=== PATIENT | male | born 1945 | race Caucasian/White ===

== ENCOUNTER 2016-08-26 11:22 | Emergency (ER) | payer OTHER ==
[~2016-08-26] VITALS: Ht 177.8 cm; Wt 86.4 kg
[2016-08-26 11:35] VITALS: BP 180/94; PULSE 80; RESP 15; O2SAT 97
--- NOTE | 2016-08-26 11:58 | ED.REPORT ---
HPI-General Illness Date of Service Aug 26, 2016 ED Provider: Ector Bueno MD The patient is a 71 year old male with history of hypertension who presents to the emergency department concerned he may be having a medication reaction. He was recently started on Losartan 25 mg about 1 week ago. He has since noticed intermittent dizziness, right lower chest pain, lightheadedness and near syncopal episodes with standing, difficulty focusing eyes, and spacey mentation. He has not fully lost consciousness. He has not fallen or hit his head. He has not experienced similar symptoms in the past. He stopped the Losartan yesterday. He denies chest pain, shortness of breath, fever, chills, nausea, vomiting or diarrhea. Nursing Notes Stated Complaint: POSSIBLE DRUG REACTION/SENT FROM [place] Chief Complaint: General Complaint Nursing Notes Reviewed: Yes Allergies: Coded Allergies: phenol (Verified Allergy, Severe, Anaphylaxis, 08/26/16) General Time Seen by MD: 11:56 Chief Complaint Other (possible medication reaction) Hx Obtained From: Patient Arrived By: Walk-in Sudden in Onset?: Yes Onset Occurred: 1 week ago Symptom Duration: Since onset Location: : Chest Quality: Painful Severity: Current: Mild Severity: Maximum: Moderate Recent Healthcare: No recent hospitalization, Recent doctor visit Similar Sx Previous: No Past Medical History Past Medical History Hypertension Carpal tunnel Arthritis Family History Noncontributory Smoking History Unknown if Ever Smoker Social History Other Social History: Local resident Ambulatory Status Independent Review of Systems +difficulty focusing eyes, spacey mentation Full Review of Systems Constitutional: Denies: Chills, Fever Respiratory: Denies: Shortness of breath Cardiovascular: Reports: Chest pain (right lower) GI: Denies: Diarrhea, Nausea, Vomiting Neurologic: Reports: Dizziness, Lightheaded, Syncope (near), Denies: Headache Complete sys rev & neg: except as marked. Physical Exam Vital Signs Vital Signs Date Time Temp Pulse Resp B/P Pulse Ox O2 Delivery O2 Flow Rate FiO2 08/26/16 11:35 36.5 80 15 180/94 97 Room Air Initial VS: Reviewed Head / Eyes: Atraumatic, Normocephalic, PERRL ENT: Mucous membranes moist, Conjunctiva normal, No scleral icterus Neck: Supple, Non-tender, Full range of motion Respiratory: Breath sounds normal, Clear to auscultation, No respiratory distress Cardiovascular: Regular rate & rhythm, Heart sounds normal, Intact distal pulses Abdomen / GI: Soft, Non-tender, No guarding, No rebound, No distention Lymphatic: No lymphadenopathy Extremities: Vascular intact, Neuro intact, No swelling, No tenderness Skin: Warm, Dry, No cyanosis Neurologic: Alert, Oriented, Nonfocal Psychiatric: Mood/affect normal, Behavior normal, Normal thought content General/Constitutional: Awake, Alert, No acute distress, Cooperative Interpretation & Diagnostics Lab Results Interpretation Result Diagram: 08/26/16 1155 08/26/16 1155 Test 08/26/16 11:55 08/26/16 12:01 White Blood Count 7.5th/mm3 (3.8-10.1) Red Blood Count 5.05mil/mm3 (4.40-5.80) Hemoglobin 14.3g/dL (13.8-17.2) Hematocrit 42.7% (41.0-50.0) Mean Corpuscular Volume 84.6fL (81-100) Mean Corpuscular Hemoglobin 28.3pg (27.0-35.0) Mean Corpuscular Hemoglobin Concent 33.5% (32.0-37.0) Red Cell Distribution Width 14.3% (12.3-15.4) Platelet Count 244bil/L (150-400) Neutrophils (%) (Auto) 63.0% (40-74) Lymphocytes (%) (Auto) 22.8% (14-46) Monocytes (%) (Auto) 10.4% (4-12) Eosinophils (%) (Auto) 3.1% (0-5) Basophils (%) (Auto) 0.3% (0-3) Sodium Level 137mEq/L (134-144) Potassium Level 3.6mEq/L (3.5-5.2) Chloride Level 97mEq/L (97-108) Carbon Dioxide Level 26mmol/L (18-29) Blood Urea Nitrogen 18mg/dL (8-27) Creatinine 0.95mg/dL (0.76-1.27) Estimat Glomerular Filtration Rate 84mL/min (>59) Glucose Level 164mg/dL (60-99) Calcium Level 8.9mg/dL (8.5-10.1) Magnesium Level 2.1mg/dL (1.6-2.6) Total Bilirubin 0.3mg/dL (0.0-1.2) Aspartate Amino Transf (AST/SGOT) 20U/L (0-50) Alanine Aminotransferase (ALT/SGPT) 17U/L (0-44) Alkaline Phosphatase 72U/L (25-160) Troponin T < 0.010ug/L (0.0-0.011) Total Protein 7.2g/dL (6.4-8.4) Albumin 4.2g/dL (3.4-5.0) Hold Reed Top Tube Received (Received) ECG Interpretation ECG Interpretation: Sinus rhythm with a rate of 83 LBBB Time: 11:53 Interpreted by: ED physician X-Ray Chest Interpretation Chest Xray Interpretation: IMPRESSION: No acute disease Dictated by: Juan vIey M.D. on 08/26/2016 at 13:16 Interpretation / Wet Read by: Interpret - Radiologist Re-Eval/Medical Decision Med Decision/Clinical Course Really think this gentleman symptoms have to do with a relative hypotension based on the institution of the new medication very recently. Source of Hx: Old records Time of Eval: 13:35 Re-Evaluation/Progress Note: Discussed plan for discharge. All questions were addressed. Counseled Regarding: Diagnosis, Lab results, Need for follow-up, When/why to return to ED Discharge & Departure Primary Impression: Medication adverse effect Encounter type: initial encounter Qualified Code: T88.7XXA - Unspecified adverse effect of drug or medicament, initial encounter Additional Impressions: Near syncope H/O: hypertension Disposition: Home Discharge Condition All VS Reviewed: Yes Condition: Stable Patient Instructions: Chronic Hypertension (ED) Additional Instructions: Thank you for entrusting us with your care today. Do not take a dose of the Losartan today. Take a half dose starting tomorrow. If you are still experiencing symptoms with 1/2 dose then take 1/4 dose. If this still gives you issues then stop taking the medication until you are re-evaluated. Keep your appointment with your regular doctor next Monday. I recommend eating a healthy diet, try to stay away from sugary food, processed food, and foods high in grain content. Regular exercise can also help improve your blood pressure. Please return to the emergency department for any new or concerning symptoms. Scribe Attestation Portions of this note were transcribed by Shirley Langford. I, Dr. Bueno personally performed the history, physical exam and medical decision-making; I reviewed and confirmed the accuracy of the information in the transcribed note. Signed by: Efraín Singh, 08/26/2016 at 1345. Ector Bueno MD Aug 26, 2016 11:58 Shirley Langford Aug 26, 2016 12:02
[2016-08-26 12:09] LABS: BASOPHILS % (AUTO) 0.3 % (0-3); EOSINOPHILS % (AUTO) 3.1 % (0-5); MONOCYTES % (AUTO) 10.4 % (4-12); Mean Corpuscular Hemoglobin 28.3 pg (27.0-35.0); Mean Corpuscular Volume 84.6 fL (81-100); Platelet Count 244 bil/L (150-400)
[2016-08-26 12:44] LABS: Magnesium 2.1 mg/dL (1.6-2.6)
[2016-08-26 12:46] LABS: TROPONIN T < 0.010 ug/L (0.0-0.011)
--- NOTE | 2016-08-26 13:19 | DRSVH ---
PROCEDURE: X-RAY CHEST ONE VIEW, PORTABLE ([id number]) INDICATIONS: CHEST PAIN TECHNIQUE: One view of the chest was acquired. COMPARISON: None. FINDINGS: Surgical changes and devices: None. Lungs and pleura: No pleural effusions or pneumothorax. Lungs are clear. Mediastinum: Mediastinal contours appear normal. Heart size is normal. Bones and chest wall: No suspicious bony lesions. Overlying soft tissues appear unremarkable. IMPRESSION: No acute disease Dictated by: Juan Ivey M.D. on 08/26/2016 at 13:16 Approved by: Juan Ivey M.D. on 08/26/2016 at 13:17
== END 2016-08-26 14:10 | disposition home or self-care (01) ==
LOC: SED 11:22
DX: T46.5X5A Adverse effect of other antihypertensive drugs, initial encounter (principal); R55 Syncope and collapse; X58.XXXA Exposure to other specified factors, initial encounter; Y93.89 Activity, other specified; Y92.9 Unspecified place or not applicable; Y99.8 Other external cause status; I10 Essential (primary) hypertension; Z88.8 Allergy status to other drugs, medicaments and biological substances